=== PATIENT | male | born 1965 | race African-American/Black ===

== ENCOUNTER 2022-12-12 12:10 | Inpatient (IN) | payer OTHER ==
[2022-12-12 12:43] VITALS: BMI 34.4
[2022-12-12] MEDS ORDERED: chlordiazePOXIDE HCL 25 MG CAPSULE PO PRN (15:18)
[2022-12-12] MEDS ORDERED: POLYETHYLENE GLYCOL (HEALTHYLAX) 3350 17 GM PACKET PO PRN (15:18)
[2022-12-12] MEDS ORDERED: MAG HYDROX/AL HYDROX/SIMETH 30 ML UNIT-DOSE CUP PO PRN (15:18)
[2022-12-12] MEDS ORDERED: ACETAMINOPHEN 325 MG TABLET (FP) PO PRN (15:18)
[2022-12-12] MEDS ORDERED: IBUPROFEN 400 MG TABLET (FP) PO PRN (15:18)
[2022-12-12] MEDS ORDERED: NICOTINE 10 MG CARTRIDGE (INHALER) IH PRN (15:18)
[2022-12-12] MEDS ORDERED: IBUPROFEN 600 MG TABLET (FP) PO PRN (15:18)
[2022-12-12] MEDS ORDERED: MAGNESIUM HYDROX 2400MG/30ML ORAL SUSPENSION 30 ML CUP PO PRN (15:18)
[2022-12-12] MEDS ORDERED: BISMUTH SUBSALICYLATE 524 MG/30 ML PO PRN (15:18)
[2022-12-12] MEDS ORDERED: ONDANSETRON *ODT* 4 MG TABLET SL PRN (15:18)
[2022-12-12] MEDS ORDERED: guaiFENesin 600 MG TABLET.ER (FP) PO PRN (15:18)
[2022-12-12] MEDS ORDERED: LOPERAMIDE HCL 2 MG CAPSULE PO PRN (15:18)
[2022-12-12] MEDS ORDERED: BENZONATATE 200 MG CAPSULE PO PRN (15:18)
[2022-12-12] MEDS ORDERED: BENZOCAINE/MENTHOL (CHLORASEPTIC ) LOZENGE MM PRN (15:18)
[2022-12-12] MEDS ORDERED: DICYCLOMINE HCL 10 MG CAPSULE PO PRN (15:18)
[2022-12-12] MEDS: chlordiazePOXIDE HCL 25 MG CAPSULE PO SCH ×2 (17:11→22:37)
[2022-12-12 19:30] LABS: PH,URINE 5.5 (5.0-8.0); URINE APPEARANCE CLEAR; URINE BILIRUBIN NEGATIVE (NEGATIVE); URINE COLOR YELLOW; URINE GLUCOSE (UA) NEGATIVE (NEGATIVE); URINE KETONE TRACE (NEGATIVE); URINE PROTEIN 30 (NEGATIVE)
[2022-12-12 19:39] LABS: URINE UROBILINOGEN 0.2 mg/dL (0.2-1.0)
[2022-12-12 19:40] LABS: EPI CELLS 11.3 /uL (0-25.1); HYALINE CASTS 1.51 /uL (0-3.1); URINE BACTERIA 5.9 /uL (0-1359); URINE LEUK ESTERASE NEGATIVE (NEGATIVE); URINE NITRITE NEGATIVE (NEGATIVE); URINE RBC 1.6 /uL (0-23.9); URINE WBC 2.2 /uL (0-25.8)
[2022-12-12] MEDS: MELATONIN 5 MG TABLETS PO SCH (22:36)
[2022-12-12] MEDS: THIAMINE HCL 100 MG TABLET (FP) PO SCH (22:36)
[2022-12-13] MEDS: chlordiazePOXIDE HCL 25 MG CAPSULE PO SCH ×4 (05:34→22:17)
[2022-12-13] MEDS ORDERED: ASPIRIN COATED 81 MG TABLET.EC PO SCH (10:00)
[2022-12-13] MEDS: METHOCARBAMOL 500 MG TABLET PO PRN (10:04)
[2022-12-13] MEDS: hydrOXYzine PAMOATE 25 MG CAPSULE (FP) PO PRN (10:04)
[2022-12-13] MEDS: PRENATAL VITAMINS W/ FOLIC ACID TABLET (FP) PO SCH (10:04)
[2022-12-13 11:15] LABS: ALBUMIN 3.7 g/dl (3.4-5.0); BLOOD UREA NITROGEN 21.3 mg/dL (7-18); CALCIUM 9.2 mg/dL (8.5-10.1)
[2022-12-13 11:18] LABS: CREATININE 1.3 mg/dL (0.55-1.3)
[2022-12-13 11:19] LABS: HEMATOCRIT 40.8 % (35.4-49); HEMOGLOBIN 14.2 GM/dL (11.7-16.9); MCH 32.1 pg (25.7-33.7); MCHC 34.8 g/dl (32.0-35.9); MEAN CELL VOLUME 92.2 fl (80-96); MEAN PLT VOLUME 10.4 fl (7.5-11.1); PLATELET COUNT 248 10^3/uL (134-434); RBC 4.43 M/mm3 (4.00-5.60); RDW 14.1 % (11.9-15.9); WHITE BLOOD COUNT 7.1 K/mm3 (4.0-10.0)
[2022-12-13 11:20] LABS: BILIRUBIN,TOTAL 0.5 mg/dL (0.2-1); TOT PROT 7.7 g/dl (6.4-8.2)
[2022-12-13] MEDS ORDERED: NICOTINE POLACRILEX 2 MG GUM BC PRN (11:28)
[2022-12-13] MEDS ORDERED: PATIENT'S OWN MEDICATION (NON-FORMULARY) (Lisinopril/Hydrochlorothiazide [Lisinopril-Hctz PO SCH (11:30)
[2022-12-13 12:13] LABS: HIV INTERPRETATION NEGATIVE (NEGATIVE)
[2022-12-13] MEDS: LISINOPRIL 20 MG TABLET PO SCH ×2 (12:21→22:17)
[2022-12-13] MEDS: ASPIRIN 81 MG CHEWABLE TABLETS PO SCH (12:21)
[2022-12-13] MEDS: HYDROCHLOROTHIAZIDE 12.5 MG CAPSULE (FP) PO SCH ×2 (12:21→22:17)
[2022-12-13] MEDS: ATORVASTATIN CA 80 MG TABLET (FP) PO SCH (12:22)
[2022-12-13] MEDS: NICOTINE 21 MG/24 HOURS TOPICAL PATCH TD SCH (12:22)
[2022-12-13] MEDS: MELATONIN 5 MG TABLETS PO SCH (22:17)
[2022-12-13] MEDS: THIAMINE HCL 100 MG TABLET (FP) PO SCH (22:17)
[2022-12-14] MEDS: chlordiazePOXIDE HCL 25 MG CAPSULE PO SCH ×4 (05:28→23:00)
[2022-12-14] MEDS: NICOTINE 21 MG/24 HOURS TOPICAL PATCH TD SCH (10:19)
[2022-12-14] MEDS: ASPIRIN 81 MG CHEWABLE TABLETS PO SCH (10:20)
[2022-12-14] MEDS: PRENATAL VITAMINS W/ FOLIC ACID TABLET (FP) PO SCH (10:20)
[2022-12-14] MEDS: LISINOPRIL 20 MG TABLET PO SCH ×2 (10:21→23:00)
[2022-12-14] MEDS: HYDROCHLOROTHIAZIDE 12.5 MG CAPSULE (FP) PO SCH ×2 (10:21→23:00)
[2022-12-14] MEDS: ATORVASTATIN CA 80 MG TABLET (FP) PO SCH (10:22)
[2022-12-14] MEDS: THIAMINE HCL 100 MG TABLET (FP) PO SCH (23:00)
[2022-12-14] MEDS: MELATONIN 5 MG TABLETS PO SCH (23:00)
[2022-12-15] MEDS ORDERED: chlordiazePOXIDE HCL 10 MG CAPSULE PO PRN
[2022-12-15] MEDS: chlordiazePOXIDE HCL 10 MG CAPSULE PO SCH ×4 (05:37→22:48)
[2022-12-15] MEDS: PRENATAL VITAMINS W/ FOLIC ACID TABLET (FP) PO SCH (10:16)
[2022-12-15] MEDS: ASPIRIN 81 MG CHEWABLE TABLETS PO SCH (10:17)
[2022-12-15] MEDS: NICOTINE 21 MG/24 HOURS TOPICAL PATCH TD SCH (10:19)
[2022-12-15] MEDS: HYDROCHLOROTHIAZIDE 12.5 MG CAPSULE (FP) PO SCH ×2 (10:19→22:52)
[2022-12-15] MEDS: LISINOPRIL 20 MG TABLET PO SCH ×2 (10:19→22:52)
[2022-12-15] MEDS: ATORVASTATIN CA 80 MG TABLET (FP) PO SCH (10:19)
[2022-12-15] MEDS: MELATONIN 5 MG TABLETS PO SCH (22:48)
[2022-12-15] MEDS: THIAMINE HCL 100 MG TABLET (FP) PO SCH (22:48)
[2022-12-15] MEDS: hydrOXYzine PAMOATE 25 MG CAPSULE (FP) PO PRN (23:00)
[2022-12-15] MEDS: METHOCARBAMOL 500 MG TABLET PO PRN (23:00)
[2022-12-16] MEDS ORDERED: chlordiazePOXIDE HCL 10 MG CAPSULE PO SCH (05:00)
[2022-12-16 09:16] VITALS: BP 156/96; PULSE 89; RESP 17; TEMP 98.1
[2022-12-16] MEDS: METHOCARBAMOL 500 MG TABLET PO PRN (10:09)
[2022-12-16] MEDS: HYDROCHLOROTHIAZIDE 12.5 MG CAPSULE (FP) PO SCH (10:09)
[2022-12-16] MEDS: ASPIRIN 81 MG CHEWABLE TABLETS PO SCH (10:09)
[2022-12-16] MEDS: PRENATAL VITAMINS W/ FOLIC ACID TABLET (FP) PO SCH (10:09)
[2022-12-16] MEDS: ATORVASTATIN CA 80 MG TABLET (FP) PO SCH (10:09)
[2022-12-16] MEDS: LISINOPRIL 20 MG TABLET PO SCH (10:10)
[2022-12-16] MEDS: NICOTINE 21 MG/24 HOURS TOPICAL PATCH TD SCH (10:11)
[2022-12-17] MEDS ORDERED: chlordiazePOXIDE HCL 10 MG CAPSULE PO ONE (05:00)
== END 2022-12-16 11:18 | disposition home or self-care (01) | DRG 774 ==
LOC: YASAS 12:10 → Y6N 15:14
PROVIDERS: ADMIT Allergy & Immunology; ATTEND Surgery
PROC: HZ2ZZZZ Detoxification Services for Substance Abuse Treatment (ICD-10-PCS; principal; 2022-12-12)
DX: F10.230 Alcohol dependence with withdrawal, uncomplicated (principal); F14.20 Cocaine dependence, uncomplicated; F12.20 Cannabis dependence, uncomplicated; F17.210 Nicotine dependence, cigarettes, uncomplicated; F41.9 Anxiety disorder, unspecified; F43.10 Post-traumatic stress disorder, unspecified; E78.00 Pure hypercholesterolemia, unspecified; I10 Essential (primary) hypertension; J45.20 Mild intermittent asthma, uncomplicated; R76.11 Nonspecific reaction to tuberculin skin test without active tuberculosis; Z86.19 Personal history of other infectious and parasitic diseases; I25.2 Old myocardial infarction
CPT/HCPCS: 36415; 71046-TC-FY; 80053; 81003; 85027; 86593; 86780; 87389; 87811; 93005; 93010; C9803-CS; U0003; U0005